=== PATIENT | male | born 1985 | race Caucasian/White ===

== ENCOUNTER 2020-09-11 12:14 | Emergency (ER) | payer BC, MEDICAID ==
[~2020-09-11] VITALS: Ht 180.3 cm; Wt 65.9 kg
[~2020-09-11 12:14] MED LIST: AMOX400S76 PO; FENT1PAT12 TOP
[2020-09-11 13:09] LABS: MEAN CORPUSCULAR VOLUME 83.8 FL (78-98)
[2020-09-11 13:11] LABS: MEAN CORPUSCULAR HEMOGLOBIN 27.6 PG (27.0-31.0); MEAN PLATELET VOLUME 8.5 FL (7.4-10.4); PLATELET COUNT 80 X10'3 (140-440); RED BLOOD COUNT 2.02 X10'6 (4.70-6.10)
[2020-09-11 13:17] LABS: HEMATOCRIT 16.9 % (42.0-52.0); HEMOGLOBIN 5.6 g/dl (14.0-17.9); PARTIAL THROMBOPLASTIN TIME 43 SECONDS (22-32); WHITE BLOOD COUNT 0.9 X10'3 (4.5-11.0)
[2020-09-11 13:19] LABS: ALANINE AMINOTRANSFERASE 36 U/L (12-78); ALBUMIN 2.5 G/DL (3.4-5.0); ALBUMIN/GLOBULIN RATIO 0.7 (1.1-1.5); ALKALINE PHOSPHATASE 68 IU/L (46-116); ANION GAP 9 (8-16); ASPARTATE AMINO TRANSFERASE 22 U/L (10-37); BILIRUBIN,TOTAL 0.4 MG/DL (0.1-1.0); BLOOD UREA NITROGEN 16 MG/DL (7-18); BUN/CREATININE RATIO 31.4 (5.4-32.0); CALCIUM 8.4 MG/DL (8.5-10.1); CHLORIDE 99 MMOL/L (99-107); CREATININE 0.51 MG/DL (0.60-1.10); GLUCOSE 106 MG/DL (70-104); LIPASE < 50 U/L (73-393); POTASSIUM 3.9 MMOL/L (3.5-5.1); SODIUM 135 MMOL/L (135-145); TOTAL CARBON DIOXIDE 27.4 MMOL/L (24-32); TOTAL PROTEIN 6.2 G/DL (6.4-8.2); eGFR > 90 ML/MIN
[2020-09-11 13:31] LABS: PLATELET ESTIMATE DECREASED; TOTAL CELLS COUNTED 100
[2020-09-11 13:32] LABS: ANISOCYTOSIS 1+; HYPOCHROMASIA 2+; SCHISTOCYTES FEW
--- NOTE | 2020-09-11 19:25 | NUR ---
PICC LINE PLACEMENT VERIFIED BY NICHELLE LEONARD BY CXR, USE OF PICC CONFIRMED
[2020-09-11 19:34] VITALS: BP 96/46
[2020-09-11 19:59] VITALS: BP 98/53
[2020-09-11] MEDS ORDERED: iohexol 350MG/ML 100ml bottle IV ONE (20:11)
[2020-09-11 20:59] VITALS: BP 92/50
[2020-09-11 22:13] VITALS: BP 98/52
[2020-09-11 22:28] VITALS: BP 101/51
[2020-09-11] MEDS ORDERED: GABA250S2 JT (22:30)
[2020-09-11] MEDS ORDERED: HALO2ORA3 JT (22:30)
[2020-09-11] MEDS ORDERED: FAMO20TA8 JT (22:30)
[2020-09-11] MEDS ORDERED: MORP20SO JT (22:30)
[2020-09-11] MEDS ORDERED: NALO4SPR BOTHNARES (22:30)
[2020-09-11] MEDS ORDERED: FERR220S16 JT (22:30)
[2020-09-11] MEDS ORDERED: FILG480S2 SQ (22:36)
[2020-09-11] MEDS ORDERED: [UNRECOGNIZED DRUG - CODE] JT (22:36)
[2020-09-11] MEDS ORDERED: PROC10TA10 JT (22:36)
[2020-09-11] MEDS ORDERED: PROM25TA14 JT (22:36)
[2020-09-11] MEDS ORDERED: ONDA8TAB65 JT (22:36)
[2020-09-11 23:28] VITALS: BP 96/54
--- NOTE | 2020-09-12 00:01 | NUR ---
VOICED CONCERN THAT PT IS INCREASINGLLY CONFUSED OVER THE LAST FEW HOURS, MD MADE AWARE. PT WAS ABLE TO ANSWER TIME PLACE, NAME AND APPROPATLY, WILL COPNTINUE TO MONITOR
[2020-09-12 00:30] LABS: HEMOGLOBIN 7.3 g/dl (14.0-17.9); WHITE BLOOD COUNT 2.4 X10'3 (4.5-11.0)
[2020-09-12 00:32] LABS: MEAN CORPUSCULAR HEMOGLOBIN 28.5 PG (27.0-31.0); MEAN CORPUSCULAR HGB CONC 33.7 g/dL (33.0-36.5); MEAN CORPUSCULAR VOLUME 84.7 FL (78-98); MEAN PLATELET VOLUME 8.8 FL (7.4-10.4); PLATELET COUNT 87 X10'3 (140-440); RED BLOOD COUNT 2.57 X10'6 (4.70-6.10); RED CELL DISTRIBUTION WIDTH 15.7 % (11.5-14.5)
[2020-09-12 00:44] LABS: HEMATOCRIT 21.7 % (42.0-52.0)
[2020-09-12 01:03] VITALS: BP 94/50
[2020-09-12 02:29] LABS: TOTAL CELLS COUNTED 100
[2020-09-12 02:33] LABS: PLATELET ESTIMATE DECREASED
[2020-09-12 03:41] LABS: NUCLEATED RED BLOOD CELLS 1 /100WBC (0-0)
== END 2020-09-12 01:04 | disposition home or self-care (01) ==
LOC: ER 12:15
DX: D64.9 Anemia, unspecified (principal); Z20.822 Contact with and (suspected) exposure to COVID-19; C49.9 Malignant neoplasm of connective and soft tissue, unspecified; R11.2 Nausea with vomiting, unspecified; R79.1 Abnormal coagulation profile
CPT/HCPCS: 36415; 36430; 71045; 71275; 80053; 83605; 83690; 84145; 85007; 85025; 85610; 85730; 86885; 86900; 86901; 86920; 87040; 87635; 93005; 99285; C9803; P9016; Q9967

== ENCOUNTER 2020-09-26 07:40 | Observation (INO) | payer BC ==
[~2020-09-26] VITALS: Ht 180.3 cm; Wt 67.7 kg
[~2020-09-26 07:40] MED LIST changes: +FAMO20TA8 JT; +FERR220S16 JT; +FILG480S2 SQ; +GABA250S2 JT; +HALO2ORA3 JT; +MORP20SO JT; +NALO4SPR BOTHNARES; +ONDA8TAB65 JT; +PROC10TA10 JT; +PROM25TA14 JT; +[UNRECOGNIZED DRUG - CODE] JT
[2020-09-26] MEDS ORDERED: normal saline 1000ml 1,000 ML IV ONE (08:10)
--- NOTE | 2020-09-26 08:19 | NUR ---
Per EDMD, ok to access pt's PICC. Currently chemo infusion running, so IV will be attempted.
[2020-09-26 08:47] LABS: EOSINOPHILS % (AUTO) 0 % (0-6); MEAN PLATELET VOLUME 6.9 FL (7.4-10.4)
[2020-09-26 08:50] LABS: BASOPHILS % (AUTO) 0.2 % (0-1); HEMATOCRIT 22.6 % (42.0-52.0); HEMOGLOBIN 7.6 g/dl (14.0-17.9); LYMPHOCYTES # (AUTO) 0.8 X10'3 (1.1-4.8); LYMPHOCYTES % (AUTO) 3.8 % (21-51); MEAN CORPUSCULAR HEMOGLOBIN 28.6 PG (27.0-31.0); MEAN CORPUSCULAR HGB CONC 33.4 g/dL (33.0-36.5); MEAN CORPUSCULAR VOLUME 85.5 FL (78-98); MONOCYTES # (AUTO) 2.3 X10'3 (0-0.9); MONOCYTES % (AUTO) 11.7 % (2-12); NEUTROPHILS # (AUTO) 16.7 X10'3 (1.8-7.7); NEUTROPHILS % (AUTO) 84.3 % (42-75); PLATELET COUNT 552 X10'3 (140-440); RED BLOOD COUNT 2.65 X10'6 (4.70-6.10); RED CELL DISTRIBUTION WIDTH 16.8 % (11.5-14.5); WHITE BLOOD COUNT 19.9 X10'3 (4.5-11.0)
[2020-09-26 08:57] LABS: PARTIAL THROMBOPLASTIN TIME 28 SECONDS (22-32)
[2020-09-26 09:04] LABS: ALANINE AMINOTRANSFERASE 19 U/L (12-78); ALBUMIN 2.4 G/DL (3.4-5.0); ALBUMIN/GLOBULIN RATIO 0.6 (1.1-1.5); ALKALINE PHOSPHATASE 84 IU/L (46-116); ANION GAP 6 (8-16); ASPARTATE AMINO TRANSFERASE 12 U/L (10-37); BILIRUBIN,TOTAL 0.3 MG/DL (0.1-1.0); BLOOD UREA NITROGEN 14 MG/DL (7-18); BUN/CREATININE RATIO 22.2 (5.4-32.0); CALCIUM 8.2 MG/DL (8.5-10.1); CHLORIDE 102 MMOL/L (99-107); CREATININE 0.63 MG/DL (0.60-1.10); GLUCOSE 105 MG/DL (70-104); POTASSIUM 4.6 MMOL/L (3.5-5.1); SODIUM 137 MMOL/L (135-145); TOTAL PROTEIN 6.4 G/DL (6.4-8.2); eGFR > 90 ML/MIN
--- NOTE | 2020-09-26 09:30 | NUR ---
pER kelley AGUDELO, TRANSFUSION MUST RUN OVER 24HR INDICATED FROM PT'S ONCOLOGIST.
[2020-09-26] MEDS ORDERED: potassium Cl 20 mEq SR tablet PO PRN ×2 (09:55)
[2020-09-26] MEDS ORDERED: mag hydrox/Alum hydrox/simeth 30ml oral suspension PO PRN (09:55)
[2020-09-26] MEDS ORDERED: magnesium hydroxide 30ml (MOM) UD suspension PO PRN (09:55)
[2020-09-26] MEDS ORDERED: ondansetron/PF 4mg/2ml inj IV PRN (09:55)
[2020-09-26] MEDS ORDERED: acetaminophen 325mg tablet PO PRN (09:55)
[2020-09-26] MEDS ORDERED: magnesium 2GM in 50ml NS 50 ML IV PRN (09:55)
[2020-09-26] MEDS ORDERED: magnesium 4gm in 100ml NS 100 ML IV PRN (09:55)
[2020-09-26] MEDS ORDERED: potassium Cl 40MEQ/1/2NS 520ml 520 ML IV PRN ×2 (09:55)
[2020-09-26] MEDS ORDERED: morphine 5 MG/ML injection IV PRN (10:20)
[2020-09-26] MEDS: ondansetron/PF 4mg/2ml inj IV SCH ×3 (10:30→20:49)
[2020-09-26] MEDS: morphine 4 MG/ML inj SYRINge IV PRN ×4 (10:30→21:30)
[2020-09-26 11:21] LABS: ANISOCYTOSIS 1+; BANDS% (MANUAL) 14.5 % (0-10); MONOCYTES % (MANUAL) 13.5 % (2-12); PLATELET ESTIMATE INCREASED; TOTAL CELLS COUNTED 200
[2020-09-26 11:23] LABS: ELLIPTOCYTES FEW; POLYCHROMASIA FEW; SCHISTOCYTES FEW; TEAR DROP CELLS FEW
[2020-09-26 11:24] LABS: ROULEAUX 1+
[2020-09-26] MEDS ORDERED: morphine 10 MG/5 ML UD oral solution JT SCH (12:00)
[2020-09-26] MEDS ORDERED: FENT1PAT11 TD (12:17)
[2020-09-26] MEDS ORDERED: PEGF6SYR SQ (12:17)
[2020-09-26] MEDS ORDERED: FENT-90 TOP (12:17)
[2020-09-26] MEDS ORDERED: proCHLORperazine 10mg tablet JT PRN (12:25)
[2020-09-26] MEDS ORDERED: haloperidol 10mg/5ml UD oral solution JT PRN (12:25)
[2020-09-26] MEDS ORDERED: ondansetron 4mg rapidly disintigrating tab JT PRN (12:25)
[2020-09-26] MEDS ORDERED: morphine 10mg/0.5ml (conc. morphine) oral syringe JT PRN (12:25)
[2020-09-26] MEDS ORDERED: proMETHazine 25mg tablet JT PRN (12:25)
[2020-09-26] MEDS ORDERED: non-formulary drug (Naloxone HCl (Narcan) 1 SPRAYS) BOTHNARES PRN (12:25)
[2020-09-26] MEDS ORDERED: famotidine 20mg tablet JT PRN (12:25)
[2020-09-26] MEDS ORDERED: GABAPENTIN 300 MG/6 ML JT SCH (13:00)
[2020-09-26] MEDS: gabapentin 300mg capsule JT SCH ×2 (14:23→20:49)
[2020-09-26 15:20] LABS: CLARITY,URINE CLEAR (Clear); COLOR,URINE YELLOW (Yellow); GLUCOSE, URINE NEGATIVE (Neg); KETONES,URINE NEGATIVE (Neg); LEUKOCYTE ESTERASE ,URINE NEGATIVE (Neg); NITRITES, URINE NEGATIVE (Neg); OCCULT BLOOD,URINE NEGATIVE (Neg); PROTEIN,URINE NEGATIVE (Neg); UA COLLECTION TYPE URINAL; UROBILINOGEN,URINE 0.2 E.U/dL (0.2-1.0)
--- NOTE | 2020-09-26 17:45 | NUR ---
Received patient to floor with mother, patient is on his own tube feed with his delivery system in place. OK by DR Wood to use this system. patient stated durgesic patch came off, ok by Dr Wood to replace patches. Order sent to pharmacist Cynthia. Awaiting blood from [facility] patient is to be transfused with the goal of HGB of 8 per his oncologist at [facility]. patient settled into room. Morphine given for pain with effect. report given to coby BRIDGES
[2020-09-26 18:00] VITALS: BP 137/84
[2020-09-26] MEDS ORDERED: fentaNYL 75 MCG/hour patch.TD72 TD ONE (18:25)
--- NOTE | 2020-09-26 18:45 | NUR ---
Patient in room ORTHO 4012. I have received report from Lori BRIDGES and had the opportunity to ask questions and assume patient care.
[2020-09-26] MEDS ORDERED: fentaNYL 12 MCG/hour patch.TD72 TD ONE (18:46)
[2020-09-26] MEDS ORDERED: fentaNYL 12 MCG/hour patch.TD72 TD SCH (18:46)
[2020-09-26] MEDS: K and/or MAG REPLACEMENT MC SCH (20:00)
--- NOTE | 2020-09-26 21:10 | NUR ---
Page Sent PAGER ID: [phone] MESSAGE: PATIENT IN [id number] HERE FOR BLOOD TRANSFUSION IN ORDER TO BE ABLE TO HAVE CHEMO. USUALLY TAKES ATIVAN 1MG Q 4H PRN AT HOME. CAN I HAVE AN ORDER? [id number]
[2020-09-26] MEDS ORDERED: LORazepam 2 mg/ml vial IV PRN (21:20)
[2020-09-26 22:00] VITALS: BP 109/50
[2020-09-26 22:37] VITALS: BP 105/49
[2020-09-26 23:05] VITALS: BP 96/50
[2020-09-26 23:45] VITALS: BP 100/46
[2020-09-27 00:45] VITALS: BP 87/54
[2020-09-27 01:45] VITALS: BP 95/59
[2020-09-27] MEDS: morphine 4 MG/ML inj SYRINge IV PRN ×3 (01:58→08:43)
[2020-09-27] MEDS: ondansetron/PF 4mg/2ml inj IV SCH ×2 (01:58→08:42)
--- NOTE | 2020-09-27 02:26 | NUR ---
I have reviewed SRN assessment findings, edited as needed.
[2020-09-27 05:34] LABS: BASOPHILS # (AUTO) 0.2 X10'3 (0-0.2); BASOPHILS % (AUTO) 0.9 % (0-1); EOSINOPHILS % (AUTO) 0.1 % (0-6); HEMATOCRIT 24.9 % (42.0-52.0); HEMOGLOBIN 8.2 g/dl (14.0-17.9); LYMPHOCYTES # (AUTO) 0.8 X10'3 (1.1-4.8); LYMPHOCYTES % (AUTO) 4.2 % (21-51); MEAN CORPUSCULAR HEMOGLOBIN 27.9 PG (27.0-31.0); MEAN CORPUSCULAR HGB CONC 32.8 g/dL (33.0-36.5); MEAN PLATELET VOLUME 7.3 FL (7.4-10.4); MONOCYTES # (AUTO) 2.6 X10'3 (0-0.9); MONOCYTES % (AUTO) 14.2 % (2-12); NEUTROPHILS # (AUTO) 14.5 X10'3 (1.8-7.7); NEUTROPHILS % (AUTO) 80.6 % (42-75); PLATELET COUNT 391 X10'3 (140-440); RED BLOOD COUNT 2.93 X10'6 (4.70-6.10); RED CELL DISTRIBUTION WIDTH 17.1 % (11.5-14.5)
[2020-09-27 05:45] LABS: ALANINE AMINOTRANSFERASE 17 U/L (12-78); ALBUMIN 2.2 G/DL (3.4-5.0); ALBUMIN/GLOBULIN RATIO 0.6 (1.1-1.5); ALKALINE PHOSPHATASE 82 IU/L (46-116); ANION GAP 7 (8-16); ASPARTATE AMINO TRANSFERASE 12 U/L (10-37); BILIRUBIN,TOTAL 0.3 MG/DL (0.1-1.0); BLOOD UREA NITROGEN 11 MG/DL (7-18); BUN/CREATININE RATIO 19.3 (5.4-32.0); CALCIUM 8.2 MG/DL (8.5-10.1); CHLORIDE 103 MMOL/L (99-107); CREATININE 0.57 MG/DL (0.60-1.10); GLUCOSE 96 MG/DL (70-104); POTASSIUM 3.9 MMOL/L (3.5-5.1); SODIUM 139 MMOL/L (135-145); TOTAL CARBON DIOXIDE 28.9 MMOL/L (24-32); TOTAL PROTEIN 6.1 G/DL (6.4-8.2); eGFR > 90 ML/MIN
[2020-09-27 06:00] VITALS: BP 107/57
[2020-09-27 06:31] LABS: TOTAL CELLS COUNTED 100
[2020-09-27 06:32] LABS: PLATELET ESTIMATE NORMAL
[2020-09-27 06:33] LABS: ANISOCYTOSIS 1+; ELLIPTOCYTES FEW; SCHISTOCYTES FEW; TEAR DROP CELLS FEW
--- NOTE | 2020-09-27 06:33 | NUR ---
Problems reprioritized. Patient report given, questions answered & plan of care reviewed with Isabella BRIDGES.
[2020-09-27] MEDS ORDERED: ferrous sulfate 300mg/5ml UD oral liquid JT SCH (08:00)
[2020-09-27] MEDS: K and/or MAG REPLACEMENT MC SCH (08:00)
[2020-09-27] MEDS: gabapentin 300mg capsule JT SCH (08:42)
[2020-09-27 10:00] VITALS: BP 101/58
--- NOTE | 2020-09-27 11:43 | NUR ---
PT DISCHARGED IN STABLE CONDITION. LEFT FACILITY IN PRIVATE VEHICLE WITH MOM. PICC LINE IN PLACE L UPPER ARM. FOLLOW UP INSTRUCTIONS GIVEN, ALL QUESTIONS ANSWERED. Addendum: 09/27/20 at 1144 by Karin Garcia RN Amended: Links added.
[2020-09-28] MEDS ORDERED: fentaNYL 12 MCG/hour patch.TD72 TD SCH (08:00)
[2020-09-29] MEDS ORDERED: fentaNYL 75 MCG/hour patch.TD72 TD SCH (08:00)
[2020-09-29] MEDS ORDERED: fentaNYL 12 MCG/hour patch.TD72 TD SCH (08:00)
== END 2020-09-27 11:40 | disposition home or self-care (01) ==
LOC: ER 07:43 → ED HOLD 09:53 → ORTHO 4S 17:26
PROVIDERS: ADMIT Family Medicine; ATTEND Family Medicine
DX: D64.81 Anemia due to antineoplastic chemotherapy (principal); C49.3 Malignant neoplasm of connective and soft tissue of thorax; K22.3 Perforation of esophagus; D72.829 Elevated white blood cell count, unspecified; Z87.891 Personal history of nicotine dependence; Z92.21 Personal history of antineoplastic chemotherapy; Z93.4 Other artificial openings of gastrointestinal tract status; Z79.899 Other long term (current) drug therapy
CPT/HCPCS: 36415; 36430; 71045; 80053; 81003; 83735; 85007; 85025; 85610; 85730; 86885; 86900; 86901; 86920; 86945; 87081; 93005; 96361; 96374; 96375; 96376; 99285; G0378; J2060; J2270; J2405; J7030; P9016